=== PATIENT | male | born 1960 | race Two or more races ===

== ENCOUNTER 2017-01-15 10:20 | Emergency (ER) | payer OTHER ==
[2017-01-15 10:32] VITALS: BP 136/96; PULSE 62; TEMP 97.7; BMI 29.5
--- NOTE | 2017-01-15 11:02 | PDOC ---
History of Present Illness - General Chief Complaint: Cold Symptoms Stated Complaint: NASAL CONGESTION Time Seen by Provider: 01/15/17 10:49 History Source: Patient Exam Limitations: No Limitations - History of Present Illness Initial Comments: 01/15/17 11:12 Patient came with complaints of chronic congestion. Has seen multiple ENT doctors, but is not currently taking any medications including antihistamines. Was hoping for some type of different type of treatment. Denies fever, purulent drainage from nose, earache or sore throat pain. 01/15/17 12:14 Timing/Duration: reports: changing over time, getting worse Severity: reports: mild, moderate Possible Cause: Yes: chronic episodes Associated Symptoms: reports: nasal congestion, nasal drainage. denies: fever/ chills Past History - Travel Traveled outside of the country in the last 30 days: No Close contact w/someone who was outside of country & ill: No - Past Medical History Allergies/Adverse Reactions: Allergies Allergy/AdvReac Type Severity Reaction Status Date / Time No Known Allergies Allergy Verified 01/15/17 10:27 Home Medications: Ambulatory Orders Prednisone [Deltasone -] 20 mg PO BID #10 tablet 01/15/17 Other medical history: NONE - Psycho/Social/Smoking Cessation Hx Anxiety: No Suicidal Ideation: No Smoking History: Never smoked Hx Alcohol Use: Yes (SOCIAL) Drug/Substance Use Hx: No Substance Use Type: None Respiratory Specific PMHX - Complaint Specific PMHX Bronchitis: No Pneumonia: No Review of Systems - Review of Systems Able to Perform ROS?: Yes Is the patient limited Luxembourger proficient: Yes Constitutional: Yes: Symptoms Reported, See HPI, Fever, Malaise HEENTM: Yes: See HPI. No: Symptoms Reported : No: Symptoms Reported Integumentary: Yes: Symptoms Reported All Other Systems: Reviewed and Negative *Physical Exam - Vital Signs Last Vital Signs Temp Pulse Resp BP Pulse Ox 97.7 F 62 20 136/96 100 01/15/17 10:24 01/15/17 10:24 01/15/17 10:24 01/15/17 10:24 01/15/17 10:24 - Physical Exam General Appearance: Yes: Nourished, Appropriately Dressed. No: Apparent Distress HEENT: positive: KIRSTEN, Pharynx Normal, Nasal Congestion, Rhinorrhea, Sinus Tenderness. negative: Normal ENT Inspection, TMs Normal Neck: positive: Supple. negative: Tender, Lymphadenopathy (R), Lymphadenopathy (L) Respiratory/Chest: positive: Lungs Clear, Normal Breath Sounds Cardiovascular: positive: Regular Rhythm Extremity: positive: Normal Capillary Refill Integumentary: positive: Normal Color, Dry, Warm, Pale Neurologic: positive: legal editor II-XII NML intact, Fully Oriented, Alert, Normal Mood/ Affect, Normal Response, Motor Strength 5/5 Progress Note - Progress Note Progress Note: Chronic sinusitis and ALLERGIC rhinitis. Patient encouraged to continue antihistamines, given 5 day course of prednisone. Encouraged also to follow-up with ENT for possible surgical evaluation *DC/Admit/Observation/Transfer Diagnosis at time of Disposition: Allergic rhinitis Qualifiers: Chronicity: acute Allergic rhinitis trigger: other Allergic rhinitis seasonality: unspecified seasonality Qualified Code(s): J30.89 - Other allergic rhinitis - Discharge Dispostion Disposition: HOME Condition at time of disposition: Stable Admit: No - Referrals Referrals: Yamileth Jean MD [Primary Care Provider] - Gal Perez MD [Staff Physician] - - Patient Instructions Printed Discharge Instructions: DI for Allergic Rhinitis Additional Instructions: Rest, drink lots of fluids: Teas, water, soups Saltwater gargles. Consider humidifier in room at night Steamy showers/seem to face break up mucus Avoid contact with allergens, exposure to pollens, close windows on a windy day Lots of handwashing and good hygiene Continue [id number] medications for symptomatic relief- may use allergic eyedrops for itching I Continue antihistamines daily until pollen season is over; Zyrtec, Claritin, Lisa during the daytime and Benadryl at nighttime as will make sleepy Prednisone as directed Tylenol or Motrin for fever and pain Followup with private physician in one to 2 days as needed Consider following up with an architecture instructor/wool carder for skin testing and possible allergy shots Return to emergency department for worsened symptoms, fevers, dehydration - Post Discharge Activity Work/School Note: Back to Work
== END 2017-01-15 11:49 | disposition home or self-care (01) ==
LOC: JER 10:20 → JERFT 10:20
DX: J30.89 Other allergic rhinitis (principal)
CPT/HCPCS: 99281-25

== ENCOUNTER 2017-07-06 00:43 | Emergency (ER) | payer OTHER ==
[2017-07-06 00:50] VITALS: BP 155/101; PULSE 72; TEMP 97.6; BMI 29.6
[2017-07-06] MEDS ORDERED: diazePAM 2 MG TABLET PO ONE (01:09)
[2017-07-06] MEDS ORDERED: morphine CARPU-JECT 2 MG/1 ML DISP.SYRIN IM STA (01:09)
[2017-07-06] MEDS ORDERED: amLODIPine BESYLATE 5 MG TABLET (FP) PO ONE (01:26)
--- NOTE | 2017-07-06 01:28 | PDOC ---
History of Present Illness - History of Present Illness Initial Comments: 07/06/17 01:29 Patient is a [place] island[place] speaking 56 M, who presents today for elevated blood pressure. Patient states that he was at [facility] and took his blood pressure and noted it to be 141/98. He thought the bottom number was too high so he came to the ER. He denies headache, blurred vision, nausea, vomiting ,chest pain PCP: Paul <Lena Knott - Last Filed: 07/06/17 01:29> <Olga Angeles - Last Filed: 07/06/17 01:31> - General Chief Complaint: Blood Pressure Problem Stated Complaint: BLOOD PRESSURE PROBLEM Time Seen by Provider: 07/06/17 01:11 Past History <Lena Knott - Last Filed: 07/06/17 01:29> - Past Medical History COPD: No - Suicide/Smoking/Psychosocial Hx Smoking History: Never smoked Have you smoked in the past 12 months: No Information on smoking cessation initiated: No Hx Alcohol Use: No Drug/Substance Use Hx: No Substance Use Type: None <Olga Angeles - Last Filed: 07/06/17 01:31> - Past Medical History Allergies/Adverse Reactions: Allergies Allergy/AdvReac Type Severity Reaction Status Date / Time No Known Allergies Allergy Verified 07/06/17 00:49 Home Medications: Ambulatory Orders predniSONE [Deltasone -] 20 mg PO BID #10 tablet 01/15/17 Review of Systems - Review of Systems Comments:: 07/06/17 01:29 CONSTITUTIONAL: Absent: fever, no chills, no fatigue EYES: Absent: visual changes ENT: Absent: ear pain, no sore throat CARDIOVASCULAR: Absent: chest pain, no palpitations RESPIRATORY: Absent: cough, no SOB GI: Absent: abdominal pain, no nausea, no vomiting, no constipation, no diarrhea GENITOURINARY: Absent: dysuria, no frequency, no hematuria MUSCULOSKELETAL: Absent: back pain, no arthralgia, no myalgia SKIN: Absent: rash NEURO: Absent: headache <Lena Knott - Last Filed: 07/06/17 01:29> *Physical Exam - Vital Signs Last Vital Signs Temp Pulse Resp BP Pulse Ox 97.6 F 72 20 155/101 98 07/06/17 00:49 07/06/17 00:49 07/06/17 00:49 07/06/17 00:49 07/06/17 00:49 - Physical Exam Comments: 07/06/17 01:29 GENERAL: Well-appearing, well-nourished. No apparent distress. HEENT: Normocephalic, atraumatic. PERRL, EOM intact. CARDIOVASCULAR: Normal S1, S2. Regular rate and rhythm. PULMONARY: Clear to auscultation bilaterally. ABDOMEN: Soft, non-distended, non-tender. EXTREMITIES: Normal ROM in all four extremities. No gross deformities. SKIN: Warm, dry. No rash NEUROLOGICAL: No focal neurological deficits. <Lena Knott - Last Filed: 07/06/17 01:29> - Vital Signs Last Vital Signs Temp Pulse Resp BP Pulse Ox 97.6 F 72 20 155/101 98 07/06/17 00:49 07/06/17 00:49 07/06/17 00:49 07/06/17 00:49 07/06/17 00:49 <Olga Angeles - Last Filed: 07/06/17 01:31> ED Treatment Course - Medications Given in the ED: ED Medications Discontinued Medications Generic Name Dose Route Start Last Admin Trade Name Freq PRN Reason Stop Dose Admin Diazepam 2 mg 07/06/17 01:09 07/06/17 01:16 Valium - PO 07/06/17 01:10 Not Given ONCE ONE Morphine Sulfate 4 mg 07/06/17 01:09 07/06/17 01:16 Morphine Injection - IM 07/06/17 01:10 Not Given ONCE STA <Lena Knott - Last Filed: 07/06/17 01:29> - Medications Given in the ED: ED Medications Discontinued Medications Generic Name Dose Route Start Last Admin Trade Name Freq PRN Reason Stop Dose Admin Diazepam 2 mg 07/06/17 01:09 07/06/17 01:16 Valium - PO 07/06/17 01:10 Not Given ONCE ONE Morphine Sulfate 4 mg 07/06/17 01:09 07/06/17 01:16 Morphine Injection - IM 07/06/17 01:10 Not Given ONCE STA <Olga Angeles - Last Filed: 07/06/17 01:31> *DC/Admit/Observation/Transfer - Attestations Scribe Attestion: 07/06/17 01:29 Documentation prepared by Lena Knott, acting as emergency medical tech for Olga Angeles MD. <Lena Knott - Last Filed: 07/06/17 01:29> <Olga Angeles - Last Filed: 07/06/17 01:31> Diagnosis at time of Disposition: Elevated blood pressure reading - Discharge Dispostion Disposition: HOME Condition at time of disposition: Stable - Patient Instructions Printed Discharge Instructions: DI for High Blood Pressure Additional Instructions: please followup with your doctor Print Language: GIBRALTARIAN
[2017-07-06] MEDS ORDERED: amLODIPine BESYLATE 5 MG TABLET (FP) ONE (01:35)
== END 2017-07-06 01:45 | disposition home or self-care (01) ==
LOC: JER 00:43
DX: Z01.31 Encounter for examination of blood pressure with abnormal findings (principal)
CPT/HCPCS: 99281-25

== ENCOUNTER 2018-12-31 15:17 | Emergency (ER) | payer OTHER ==
[2018-12-31 15:31] VITALS: BP 151/89; PULSE 63; TEMP 98.3; BMI 33.0
--- NOTE | 2018-12-31 16:21 | PDOC ---
History of Present Illness - General Chief Complaint: Injury Stated Complaint: LT TOE INJURY Time Seen by Provider: 12/31/18 15:53 History Source: Patient Exam Limitations: No Limitations - History of Present Illness Initial Comments: 12/31/18 16:22 HISTORY OF PRESENT ILLNESS: 58-year-old male denies medical history presents emergency department for evaluation of left fourth toe pain status post direct trauma. Patient reports last night so when he opened the door struck him in the toe. Patient was concerned when he woke up his toenail was missing. Patient apply dressing to his toe and came to the emergency department for evaluation. Patient is unsure of his last tetanus. No recent travel or sick contacts. PAST MEDICAL HISTORY: Denies past medical history SURGICAL HISTORY: Denies ALLERGIES: No known drug allergies REVIEW OF SYSTEMS General/Constitutional: Denies fever or chills. Denies weakness, weight change. HEENT: Denies change in vision. Denies ear pain or discharge. Denies sore throat. Cardiovascular: Denies chest pain or shortness of breath. Respiratory: Denies cough, wheezing, or hemoptysis. Gastrointestinal: Denies nausea, vomiting, diarrhea or constipation. Denies rectal bleeding. Genitourinary: Denies dysuria, frequency, or change in urination. Musculoskeletal: see HPI Skin and breasts: Denies rash or easy bruising. Neurologic: Denies headache, vertigo, loss of consciousness, or loss of sensation. Psychiatric: Denies depression or anxiety. Endocrine: Denies increased thirst. Denies abnormal weight change. Hematologic/Lymphatic: Denies anemia, easy bleeding, or history of blood clots. Allergic/Immunologic: Denies hives or skin allergy. Denies latex allergy. PHYSICAL EXAM General Appearance: Well-appearing, appropriately dressed. No apparent distress , no intoxication. HEENT: EOMI, PERRLA, normal ENT inspection, normal voice, TMs normal, pharynx normal. No conjunctival pallor. No photophobia, scleral icterus. Neck: Supple. Trachea midline. No tenderness, rigidity, carotid bruit, stridor , lymphadenopathy, or thyromegaly. Respiratory/Chest: Lungs CTAB. No shortness of breath, chest tenderness, respiratory distress, accessory muscle use. No crackles, rales, rhonchi, stridor , wheezing, dullness Cardiovascular: RRR. S1, S2. No JVD, murmur, bradycardia, tachycardia. Vascular Pulses: Dorsalis-Pedis (R): 2+, Dorsalis-Pedis (L): 2+ Gastrointestinal/Abdominal: Normal bowel sounds. Abdomen soft, non-distended. No tenderness or rebound tenderness. No organomegaly, pulsatile mass, guarding, hernia, hepatomegaly, splenomegaly. Lymphatic: No adenopathy, tenderness. Musculoskeletal/Extremities: Left fourth toe with avulsed nail. Skin tear present to the distal toe. No palpable nail present. Neurovascular intact. Integumentary: Appropriate color, dry, warm. No cyanosis, erythema, jaundice or rash Neurologic: director of casework department II-XII intact. Fully oriented, alert. Appropriate mood/affect. Motor strength 5/5. No appreciable EOM palsy, facial droop or sensory deficit. Past History - Past Medical History Allergies/Adverse Reactions: Allergies Allergy/AdvReac Type Severity Reaction Status Date / Time No Known Allergies Allergy Verified 12/31/18 15:31 Home Medications: Ambulatory Orders predniSONE [Deltasone -] 20 mg PO BID #10 tablet 01/15/17 COPD: No - Suicide/Smoking/Psychosocial Hx Smoking History: Never smoked Have you smoked in the past 12 months: No Hx Alcohol Use: Yes Drug/Substance Use Hx: No Substance Use Type: None *Physical Exam - Vital Signs Last Vital Signs Temp Pulse Resp BP Pulse Ox 98.3 F 63 16 151/89 99 12/31/18 15:29 12/31/18 15:29 12/31/18 15:29 12/31/18 15:29 12/31/18 15:29 ED Treatment Course - RADIOLOGY Radiology Studies Ordered: Category Date Time Status TOE(S) LEFT [RAD] Stat Radiology 12/31/18 16:07 Ordered Medical Decision Making - Medical Decision Making 12/31/18 17:14 A/P: 58-year-old male with left fourth toenail avulsion Nailbed matrix appears intact X-ray of toes of the left foot as read by me: No acute fractures or dislocations present. Boostrix Patient anesthetized using 2% lidocaine 4 mL as a digital block. Wound irrigated Professor Of Kinesiology placed under the eponychial of the fourth toe of the left foot Foil secured using 2 5-0 proline sutures Dry sterile dressing applied Patient tolerated procedure well Discharge home to follow-up with his primary doctor or return to ER for reevaluation. I discussed the physical exam findings, ancillary test results and final diagnoses with the patient. I answered all of the patient's questions. The patient was satisfied with the care received and felt comfortable with the discharge plan and treatment plan. The patient will call their primary care physician within 24 hours to arrange follow-up and will return to the Emergency Department with any new, persistent or worsening symptoms. Portions of this note have been documented using voice recognition software. As a result, errors may occur in the marketing operations analyst process. Effort has been made to correct all grammatical and marketing operations analyst error, but some may have been missed. *DC/Admit/Observation/Transfer Diagnosis at time of Disposition: Nail avulsion of toe Qualifiers: Encounter type: initial encounter Qualified Code(s): S91.209A - Unspecified open wound of unspecified toe(s) with damage to nail, initial encounter - Discharge Dispostion Disposition: HOME Condition at time of disposition: Stable Decision to Admit order: No - Referrals Referrals: Chuckie Muñoz MD [Primary Care Provider] - - Patient Instructions Additional Instructions: Return to ED or your regular doctor in 1 week for re-evaluation. - Post Discharge Activity
[2018-12-31] MEDS ORDERED: DIPHTH,PERTUSS(ACELL),TET 0.5 ML DISP.SYRIN IM ONE ×2 (16:27→16:32)
== END 2018-12-31 17:11 | disposition home or self-care (01) ==
LOC: JERFT 15:17
PROC: 0HQNXZZ Repair Left Foot Skin, External Approach (ICD-10-PCS; principal; 2018-12-31)
PROC: 3E0234Z Introduction of Serum, Toxoid and Vaccine into Muscle, Percutaneous Approach (ICD-10-PCS; 2018-12-31)
DX: S91.205A Unspecified open wound of left lesser toe(s) with damage to nail, initial encounter (principal); W22.8XXA Striking against or struck by other objects, initial encounter; Y93.89 Activity, other specified; Y92.89 Other specified places as the place of occurrence of the external cause; Y99.8 Other external cause status
CPT/HCPCS: 12001-25; 73660-TC-LT-FY; 90471; 90715; 99281-25

== ENCOUNTER 2019-01-10 11:21 | Emergency (ER) | payer OTHER ==
[2019-01-10 11:28] VITALS: BP 138/88; PULSE 55; TEMP 97.6; BMI 32.3
--- NOTE | 2019-01-10 11:53 | PDOC ---
History of Present Illness - General Chief Complaint: Suture/Staple Removal(Here) Stated Complaint: REMOVAL OF STITCHES Time Seen by Provider: 01/10/19 11:31 - History of Present Illness Initial Comments: 01/10/19 11:55 -year-old male returns to the emergency room for suture removal from sutures placed on December 31. He's had no complications or systemic symptoms since suture placement. He has not followed up with podiatry. Past History - Past Medical History Allergies/Adverse Reactions: Allergies Allergy/AdvReac Type Severity Reaction Status Date / Time No Known Allergies Allergy Verified 01/10/19 11:28 Home Medications: Ambulatory Orders predniSONE [Deltasone -] 20 mg PO BID #10 tablet 01/15/17 COPD: No - Suicide/Smoking/Psychosocial Hx Smoking History: Never smoked Have you smoked in the past 12 months: No Hx Alcohol Use: No Drug/Substance Use Hx: No Substance Use Type: None Review of Systems - Review of Systems Constitutional: Yes: See HPI *Physical Exam - Vital Signs Last Vital Signs Temp Pulse Resp BP Pulse Ox 97.6 F 55 L 16 138/88 99 01/10/19 11:25 01/10/19 11:25 01/10/19 11:25 01/10/19 11:25 01/10/19 11:25 - Physical Exam Comments: 01/10/19 11:52 2 Prolene sutures holding foil over the nailbed. There is no nail underneath the foil. The nailbed is clean and dry. Medical Decision Making - Medical Decision Making 01/10/19 11:52 The wound was clean dry and intact with normal skin color and temperature surrounding the wound. Sutures were removed with an 11 blade a needle team driver without complication *DC/Admit/Observation/Transfer Diagnosis at time of Disposition: Visit for suture removal - Discharge Dispostion Disposition: HOME Decision to Admit order: No - Referrals Referrals: Yamileth Jean MD [Primary Care Provider] - Carlos Eduardo Carrillo MD [Non Staff, Medical] - José Miguel Mauricio MD [Staff Physician] - Mariah Tanner DPM [Non Staff, Medical] - Carlos Eduardo Sparks [Non Staff, Medical] - Yonathan Moore MD [Non Staff, Medical] - D'Orazi,Nabeel, MD [Staff Physician] - - Patient Instructions Additional Instructions: Return to the emergency room should she develop problems such as redness, swelling, drainage, or increasing pain around the area otherwise follow-up with podiatry in 2-3 days for a wound check. The area open to air as much as possible again cover the area if you are leaving the house or doing work. - Post Discharge Activity
== END 2019-01-10 12:03 | disposition home or self-care (01) ==
LOC: JERFT 11:21
DX: Z48.817 Encounter for surgical aftercare following surgery on the skin and subcutaneous tissue (principal); Z48.02 Encounter for removal of sutures
CPT/HCPCS: 99281-25

== ENCOUNTER 2023-06-03 11:54 | Emergency (ER) | payer OTHER ==
[2023-06-03 12:34] VITALS: BMI 30.4
[2023-06-03] MEDS ORDERED: ACETAMINOPHEN 325 MG TABLET (FP) PO ONE (14:04)
[2023-06-03] MEDS ORDERED: ACETAMINOPHEN 325 MG TABLET (FP) ONE (14:12)
[2023-06-03 14:24] LABS: BASO % 1.2 % (0-2.0); EOS % 6.7 % (0-4.5); HEMATOCRIT 40.3 % (35.4-49); HEMOGLOBIN 13.8 GM/dL (11.7-16.9); LYMPH % 30.4 % (8-40); MCH 29.6 pg (25.7-33.7); MCHC 34.3 g/dl (32.0-35.9); MEAN CELL VOLUME 86.3 fl (80-96); MEAN PLT VOLUME 9.5 fl (7.5-11.1); MONO % 8.7 % (3.8-10.2); PLATELET COUNT 214 10^3/uL (134-434); RBC 4.66 M/mm3 (4.00-5.60); RDW 14.3 % (11.9-15.9); WHITE BLOOD COUNT 5.6 K/mm3 (4.0-10.0)
[2023-06-03 14:29] LABS: INR 1.09 (0.83-1.09); PROTHROMBIN TIME (PATIENT) 12.6 SEC (9.7-13.0)
[2023-06-03 14:32] LABS: ACTIVATED PTT 32.5 SECONDS (25.2-36.5)
[2023-06-03 14:41] LABS: POTASSIUM 3.7 mmol/L (3.5-5.1)
[2023-06-03 14:43] LABS: CALCIUM 8.2 mg/dL (8.5-10.1)
[2023-06-03 14:44] LABS: ALBUMIN 3.4 g/dl (3.4-5.0); BLOOD UREA NITROGEN 12.2 mg/dL (7-18)
[2023-06-03 14:47] LABS: CREATININE 0.9 mg/dL (0.55-1.3)
[2023-06-03 14:48] LABS: BILIRUBIN,TOTAL 0.4 mg/dL (0.2-1); TOT PROT 6.8 g/dl (6.4-8.2)
[2023-06-03 16:00] VITALS: BP 154/99; PULSE 65; RESP 20; TEMP 98
== END 2023-06-03 16:09 | disposition home or self-care (01) ==
LOC: JER 11:54
DX: R07.89 Other chest pain (principal); Z20.822 Contact with and (suspected) exposure to COVID-19
CPT/HCPCS: 0241U-QW; 36415; 71046-TC-FY; 80053; 84484; 85025; 85610; 85730; 93005; 93010; 99285-25

== ENCOUNTER 2023-09-07 13:05 | Emergency (ER) | payer OTHER ==
[2023-09-07 13:11] VITALS: RESP 18; TEMP 98; BMI 31.4
[2023-09-07 14:42] LABS: BASO % 1.1 % (0-2.0); EOS % 8.4 % (0-4.5); HEMATOCRIT 39.8 % (35.4-49); HEMOGLOBIN 13.2 GM/dL (11.7-16.9); LYMPH % 33.9 % (8-40); MCH 28.4 pg (25.7-33.7); MCHC 33.1 g/dl (32.0-35.9); MEAN PLT VOLUME 9.1 fl (7.5-11.1); MONO % 8.1 % (3.8-10.2); NEUT % 48.5 % (42.8-82.8); PLATELET COUNT 189 10^3/uL (134-434); RBC 4.63 M/mm3 (4.00-5.60); RDW 13.5 % (11.9-15.9); WHITE BLOOD COUNT 5.7 K/mm3 (4.0-10.0)
[2023-09-07 14:46] LABS: INR 1.02 (0.83-1.09); PROTHROMBIN TIME (PATIENT) 11.5 SEC (9.7-13.0)
[2023-09-07 14:49] LABS: ACTIVATED PTT 31.4 SECONDS (25.2-36.5)
[2023-09-07] MEDS ORDERED: LABETALOL HCL 5 MG/1 ML (100MG/20 ML VIAL) ONE (14:55)
[2023-09-07 15:01] LABS: POTASSIUM 4.1 mmol/L (3.5-5.1)
[2023-09-07 15:04] LABS: CALCIUM 8.9 mg/dL (8.5-10.1)
[2023-09-07 15:05] LABS: ALBUMIN 3.5 g/dl (3.4-5.0); BLOOD UREA NITROGEN 11.4 mg/dL (7-18); MAGNESIUM 2.2 mg/dL (1.8-2.4)
[2023-09-07 15:08] LABS: PHOSPHOROUS 2.7 mg/dL (2.5-4.9)
[2023-09-07 15:09] LABS: BILIRUBIN,TOTAL 0.4 mg/dL (0.2-1)
[2023-09-07] MEDS: LABETALOL HCL 5 MG/1 ML (100MG/20 ML VIAL) IVPUSH ONE (15:40)
[2023-09-07] MEDS ORDERED: amLODIPine BESYLATE 10 MG TABLET (FP) ONE (15:53)
[2023-09-07] MEDS ORDERED: ACETAMINOPHEN 325 MG TABLET (FP) ONE (15:53)
[2023-09-07] MEDS: ACETAMINOPHEN 650 MG/20.3 ML ORAL SOLUTION (CUPS) PO ONE (15:57)
[2023-09-07] MEDS: amLODIPine BESYLATE 10 MG TABLET (FP) PO ONE (15:57)
[2023-09-07 17:24] VITALS: BP 143/102; PULSE 53
== END 2023-09-07 17:37 | disposition home or self-care (01) ==
LOC: JER 13:05
DX: R07.89 Other chest pain (principal)
CPT/HCPCS: 36415; 71046-TC-FY; 71250-TC; 80053; 82550; 83735; 84100; 84484; 85025; 85610; 85730; 86850; 86900; 86901; 93005; 93010; 99285-25